=== PATIENT | male | born 1955 | race Hispanic/Latino ===

== ENCOUNTER 2020-05-06 19:38 | Observation (INO) | payer MEDICAID, OTHER ==
[2020-05-06] MEDS ORDERED: ASPIRIN 325 MG TAB PO ONE (19:50)
[2020-05-06 20:25] LABS: Hematocrit 50.1 % (35.5-45.6); Hemoglobin 16.4 gm/dl (11.8-15.2); Mean Corpuscular HGB Conc 33 % (32-34); Mean Corpuscular Volume 88 fl (84-94); Platelet Count 218 K/mm3 (140-440); Red Blood Count 5.68 M/mm3 (3.65-5.03); Red Cell Distribution Width 16.2 % (13.2-15.2)
[2020-05-06 20:43] LABS: BUN/Creatinine Ratio 26; Blood Urea Nitrogen 18 mg/dL (9-20); Calcium 9.6 mg/dL (8.4-10.2); Hemolysis Index 14
--- NOTE | 2020-05-06 20:59 | XRay Report ---
CHEST 1 VIEW 05/06/2020 7:50 PM INDICATION / CLINICAL INFORMATION: Chest Pain. COMPARISON: 12/06/2017. FINDINGS: SUPPORT DEVICES: Left-sided cardiac conduction device. HEART / MEDIASTINUM: No significant abnormality. LUNGS / PLEURA: No significant pulmonary or pleural abnormality. No pneumothorax. ADDITIONAL FINDINGS: No significant additional findings. IMPRESSION: No acute cardiopulmonary abnormality. No significant change from 12/06/2017. Signer Name: Buddy Hubbard MD Signed: 05/06/2020 8:55 PM Workstation Name: [id number]
[2020-05-06 22:44] LABS: Anisocytosis 1+; Basophils % (Manual) 0 % (0.0-1.8); Platelet Estimate Consistent w Auto; Total Cells Counted 100
[2020-05-06] MEDS ORDERED: MORPHINE 4 MG/1 ML INJ IV ONE (23:49)
--- NOTE | 2020-05-06 23:52 | Emergency Department Report ---
ED Chest Pain HPI - General Chief Complaint: Chest Pain Stated Complaint: CHEST PAIN Time Seen by Provider: 05/06/20 23:49 Source: patient, EMS Mode of arrival: Stretcher Limitations: No Limitations - History of Present Illness Initial Comments: 65-year-old male with a past medical history of CAD with 3 stents, AICD, hyperlipidemia, and diabetes presents to the hospital complaints of sudden onset of substernal chest pain radiating to left shoulder and back that started 1 hour prior to arrival at approximately 18: 30. Pain described as a intermittent pressure/tightness with associated shortness of breath, nausea, vomiting, and diaphoresis. Patient states his last heart attack was in 2000 and pain feels similar. He has been compliant with his statin, baby aspirin, metformin, and metoprolol. He states he is allergic to nitroglycerin and most of the antiemetics. Patient recently relocated here from [place] but was seen by Dr. Sheikh/[facility] heart in the past as per medical record review as hospitalization here was in November 2017. He prefers follow-up with the same cardiology group. Patient also has a secondary complaint of discomfort with urination but denies pain, polyuria, dysuria, lower back, flank pain, history of kidney stones. - Related Data Previous Rx's Medication Instructions Recorded Last Taken Type Simvastatin (Nf) [Zocor TAB] 40 mg PO DAILY 30 Days #30 tablet 09/05/17 Unknown Rx Acetaminophen [Acetaminophen TAB] 650 mg PO Q4H PRN #30 tablet 12/09/17 Unknown Rx Aspirin [Aspirin BABY CHEW TAB] 81 mg PO QDAY #30 tab.chew 12/09/17 Unknown Rx Metformin HCl [Glucophage] 500 mg PO BID #60 12/09/17 Unknown Rx Metoprolol [Lopressor TAB] 100 mg PO DAILY #30 tablet 12/09/17 Unknown Rx Allergies Allergy/AdvReac Type Severity Reaction Status Date / Time nitroglycerin Allergy Angioedema Verified 12/06/17 00:57 prochlorperazine edisylate Allergy Hives Verified 12/06/17 00:57 [From Compazine] prochlorperazine maleate Allergy Hives Verified 12/06/17 00:57 [From Compazine] metoclopramide HCl AdvReac Unknown Verified 12/06/17 00:57 [From Reglan] ondansetron HCl [From Zofran] AdvReac Unknown Verified 12/06/17 00:57 promethazine HCl AdvReac Unknown Verified 12/06/17 00:57 [From Phenergan] Heart Score - HEART Score History: Slightly suspicious EKG: Non-specific Age: > 65 Risk factors: > 3 risk factors or hx of atherosclerotic disease Troponin: < normal limit HEART Score: 5 ED Review of Systems ROS: Stated complaint: CHEST PAIN Other details as noted in HPI Comment: All other systems reviewed and negative ED Past Medical Hx - Past Medical History Previous Medical History?: Yes Hx Hypertension: Yes Hx Heart Attack/AMI: Yes Hx Congestive Heart Failure: No Hx Diabetes: Yes Hx Asthma: No Hx COPD: No Additional medical history: High cholesterol; VTach, - Surgical History Past Surgical History?: Yes Hx Coronary Stent: Yes Hx Pacemaker: Yes Hx Internal Defibrillator: Yes Hx Cholecystectomy: Yes - Social History Smoking Status: Never Smoker Substance Use Type: None - Medications Home Medications: Home Medications Medication Instructions Recorded Confirmed Last Taken Type Simvastatin (Nf) [Zocor TAB] 40 mg PO DAILY 30 Days #30 tablet 09/05/17 12/06/17 Unknown Rx Acetaminophen [Acetaminophen TAB] 650 mg PO Q4H PRN #30 tablet 12/09/17 Unknown Rx Aspirin [Aspirin BABY CHEW TAB] 81 mg PO QDAY #30 tab.chew 12/09/17 Unknown Rx Metformin HCl [Glucophage] 500 mg PO BID #60 12/09/17 12/06/17 Unknown Rx Metoprolol [Lopressor TAB] 100 mg PO DAILY #30 tablet 12/09/17 Unknown Rx ED Physical Exam - General Limitations: No Limitations ED Course Vital Signs 05/06/20 05/06/20 05/07/20 19:55 23:53 01:24 Temperature 98.6 F Pulse Rate 94 H 78 84 Respiratory 20 19 20 Rate Blood Pressure 165/124 Blood Pressure 184/117 153/103 [Right] O2 Sat by Pulse 92 95 97 Oximetry JOHN score - John Score Age > 65: (0) No Aspirin use within the Past 7 Days: (1) Yes 3 or more CAD Risk Factors: (1) Yes 2 or more Angina events in past 24 hrs: (0) No Known CAD with more than 50% Stenosis: (1) Yes Elevated Cardiac Markers: (0) No ST Deviation Greater than 0.5mm: (0) No JOHN Score: 3 ED Medical Decision Making - Lab Data Result diagrams: 05/06/20 19:56 05/06/20 19:56 Lab Results 05/06/20 05/06/20 05/06/20 Range/Units 19:56 19:56 22:53 WBC 10.5 (4.5-11.0) K/mm3 RBC 5.68 H (3.65-5.03) M/mm3 Hgb 16.4 H (11.8-15.2) gm/dl Hct 50.1 H (35.5-45.6) % MCV 88 (84-94) fl MCH 29 (28-32) pg MCHC 33 (32-34) % RDW 16.2 H (13.2-15.2) % Plt Count 218 (140-440) K/mm3 Add Manual Diff Complete Total Counted 100 Seg Neuts % (Manual) 69.0 (40.0-70.0) % Band Neutrophils % 0 % Lymphocytes % (Manual) 18.0 (13.4-35.0) % Reactive Lymphs % (Man) 0 % Monocytes % (Manual) 12.0 H (0.0-7.3) % Eosinophils % (Manual) 1.0 (0.0-4.3) % Basophils % (Manual) 0 (0.0-1.8) % Metamyelocytes % 0 % Myelocytes % 0 % Promyelocytes % 0 % Blast Cells % 0 % Nucleated RBC % Not Reportable Seg Neutrophils # Man 7.2 (1.8-7.7) K/mm3 Band Neutrophils # 0.0 K/mm3 Lymphocytes # (Manual) 1.9 (1.2-5.4) K/mm3 Abs React Lymphs (Man) 0.0 K/mm3 Monocytes # (Manual) 1.3 H (0.0-0.8) K/mm3 Eosinophils # (Manual) 0.1 (0.0-0.4) K/mm3 Basophils # (Manual) 0.0 (0.0-0.1) K/mm3 Metamyelocytes # 0.0 K/mm3 Myelocytes # 0.0 K/mm3 Promyelocytes # 0.0 K/mm3 Blast Cells # 0.0 K/mm3 WBC Morphology Not Reportable Hypersegmented Neuts Not Reportable Hyposegmented Neuts Not Reportable Hypogranular Neuts Not Reportable Smudge Cells Not Reportable Toxic Granulation Not Reportable Toxic Vacuolation Not Reportable Dohle Bodies Not Reportable Pelger-Huet Anomaly Not Reportable Matteo Rods Not Reportable Platelet Estimate Consistent w auto Clumped Platelets Not Reportable Plt Clumps, EDTA Not Reportable Large Platelets Not Reportable Giant Platelets Not Reportable Platelet Satelliting Not Reportable Plt Morphology Comment Not Reportable RBC Morphology Not Reportable Dimorphic RBCs Not Reportable Polychromasia Not Reportable Hypochromasia Not Reportable Poikilocytosis Not Reportable Anisocytosis 1+ Microcytosis Not Reportable Macrocytosis Not Reportable Spherocytes Not Reportable Pappenheimer Bodies Not Reportable Sickle Cells Not Reportable Target Cells Not Reportable Tear Drop Cells Not Reportable Ovalocytes Not Reportable Helmet Cells Not Reportable Mckenzie-Papillion Bodies Not Reportable Brownell Rings Not Reportable Ching Cells Not Reportable Bite Cells Not Reportable Crenated Cell Not Reportable Elliptocytes Not Reportable Acanthocytes (Spur) Not Reportable Rouleaux Not Reportable Hemoglobin C Crystals Not Reportable Schistocytes Not Reportable Malaria parasites Not Reportable Antonio Bodies Not Reportable Hem Pathologist Commnt No Sodium 140 (137-145) mmol/L Potassium 4.0 (3.6-5.0) mmol/L Chloride 100.5 (98-107) mmol/L Carbon Dioxide 23 (22-30) mmol/L Anion Gap 21 mmol/L BUN 18 (9-20) mg/dL Creatinine 0.7 L (0.8-1.3) mg/dL Estimated GFR > 60 ml/min BUN/Creatinine Ratio 26 % Glucose 112 H (75-100) mg/dL Calcium 9.6 (8.4-10.2) mg/dL Troponin T < 0.010 < 0.010 (0.00-0.029) ng/mL - EKG Data -: EKG Interpreted by [facility] EKG shows normal: sinus rhythm, ST-T waves (No STEMI) Rate: normal - EKG Data When compared to previous EKG there are: no significant change - Radiology Data Radiology results: report reviewed CHEST 1 VIEW 05/06/2020 7:50 PM INDICATION / CLINICAL INFORMATION: Chest Pain. COMPARISON: 12/06/2017. FINDINGS: SUPPORT DEVICES: Left-sided cardiac conduction device. HEART / MEDIASTINUM: No significant abnormality. LUNGS / PLEURA: No significant pulmonary or pleural abnormality. No pneumothorax. ADDITIONAL FINDINGS: No significant additional findings. IMPRESSION: No acute cardiopulmonary abnormality. No significant change from 12/06/2017. - Medical Decision Making 65-year-old male with a history of CAD presents with chest pain similar to prev ious OR episodes requiring stent placement. Initial EKG unchanged from previous from 2018 and troponin negative x2. Patient presents with elevated blood pressure. Labetalol ordered. Patient also treated with morphine for pain. Patient will be admitted to the hospitalist service for treatment and cardiology consult ordered with [facility] ordered given urinary complaints and pending at disposition Critical care attestation.: If time is entered above; I have spent that time in minutes in the direct care of this critically ill patient, excluding procedure time. ED Disposition Clinical Impression: Chest pain, AICD (automatic cardioverter/defibrillator) present, Dyslipidemia, HTN (hypertension), History of heart artery stent, Diabetes Disposition: OP ADMIT IP TO THIS HOSP Is pt being admited?: Yes Time of Disposition: 23:54 (Dr Evangelista/hosp)
[2020-05-07] MEDS ORDERED: DEXTROSE 50% IN WATER (25GM) 50 ML SYRINGE IV PRN (00:49)
[2020-05-07] MEDS ORDERED: MAGNESIUM HYDROXIDE (MOM) ORAL LIQD UDC PO PRN (00:49)
[2020-05-07] MEDS ORDERED: ACETAMINOPHEN 325 MG TAB PO PRN ×2 (00:49)
--- NOTE | 2020-05-07 01:07 | History and Physical Report ---
History of Present Illness Date of examination: 05/07/20 Date of admission: 05/07/2020 Chief complaint: Chest Pain History of present illness: 65-year-old male with known history of coronary artery disease with 3 stents placement in the past, hypertension, diabetes mellitus ,hyperlipidemia and history of AICD presenting to the emergency room today complaining of substernal chest pain. Pain is said to be of sudden onset and radiating towards the left shoulder and back. Pain felt like a pressure and was intermittent. She had associated shortness of breath, nausea and vomiting, and diaphoresis. Patient has just relocated from [place] but has followed up with Dr. Sheikh in the past. Last follow-up was about 2 years ago. Patient remains compliant with his medications. Work-up in the emergency room today including chest x-ray, EKG and troponins were unremarkable. Patient is being admitted to be evaluated for chest pain. Past History Past Medical History: CAD, diabetes, hypertension, hyperlipidemia Past Surgical History: PTCA, Other (AICD Placement) Social history: no significant social history Family history: no significant family history Medications and Allergies Allergies Allergy/AdvReac Type Severity Reaction Status Date / Time nitroglycerin Allergy Angioedema Verified 12/06/17 00:57 prochlorperazine edisylate Allergy Hives Verified 12/06/17 00:57 [From Compazine] prochlorperazine maleate Allergy Hives Verified 12/06/17 00:57 [From Compazine] metoclopramide HCl AdvReac Unknown Verified 12/06/17 00:57 [From Reglan] ondansetron HCl [From Zofran] AdvReac Unknown Verified 12/06/17 00:57 promethazine HCl AdvReac Unknown Verified 12/06/17 00:57 [From Phenergan] Home Medications Medication Instructions Recorded Confirmed Last Taken Type Aspirin [Aspirin BABY CHEW TAB] 81 mg PO QDAY #30 tab.chew 12/09/17 05/07/20 Unknown Rx Metformin HCl [Glucophage] 500 mg PO BID #60 12/09/17 05/07/20 Unknown Rx Atorvastatin [Lipitor Tab] 40 mg PO QHS 05/07/20 05/07/20 Unknown History Metoprolol [Lopressor TAB] 50 mg PO DAILY 05/07/20 05/07/20 Unknown History Review of Systems Constitutional: other (Diaphoresis), no fever, no chills Ears, nose, mouth and throat: no nasal congestion, no sore throat Cardiovascular: chest pain, no palpitations Respiratory: shortness of breath, no cough Gastrointestinal: no abdominal pain, no nausea, no vomiting Genitourinary Male: no dysuria, no hematuria, no flank pain Musculoskeletal: no neck pain, no low back pain Integumentary: no rash, no pruritis Neurological: no headaches, no confusion Psychiatric: no anxiety, no depression Exam - Constitutional Vitals: Temp Pulse Resp BP Pulse Ox 98.6 F 78 19 184/117 95 05/06/20 19:55 05/06/20 23:53 05/06/20 23:53 05/06/20 23:53 05/06/20 23:53 General appearance: Present: no acute distress, well-nourished - EENT Eyes: Present: PERRL, EOM intact. Absent: scleral icterus ENT: hearing intact, clear oral mucosa, dentition normal - Neck Neck: Present: supple, normal ROM - Respiratory Respiratory effort: normal Respiratory: bilateral: CTA - Cardiovascular Rhythm: regular Heart Sounds: Present: S1 & S2. Absent: gallop, systolic murmur, diastolic murmur, rub - Extremities Extremities: no ischemia, pulses intact, pulses symmetrical, No edema, Full ROM Peripheral Pulses: within normal limits - Abdominal General gastrointestinal: Present: soft, non-tender, non-distended, normal bowel sounds. Absent: mass - Integumentary Integumentary: Present: clear, warm, dry. Absent: rash - Musculoskeletal Musculoskeletal: strength equal bilaterally - Psychiatric Psychiatric: appropriate mood/affect, intact judgment & insight, memory intact, cooperative - Neurologic Neurologic: CNII-XII intact, no focal deficits, moves all extremities HEART Score - HEART Score History: Moderately suspicious EKG: Non-specific Age: > 65 Risk factors: > 3 risk factors or hx of atherosclerotic disease Troponin: Troponin T < 0.010 ng/mL (0.00-0.029) 05/06/20 22:53 Troponin: < normal limit HEART Score: 6 Results - Labs CBC & Chem 7: 05/07/20 01:36 05/07/20 01:36 Labs: Abnormal lab results 05/06/20 05/06/20 Range/Units 19:56 19:56 RBC 5.68 H (3.65-5.03) M/mm3 Hgb 16.4 H (11.8-15.2) gm/dl Hct 50.1 H (35.5-45.6) % RDW 16.2 H (13.2-15.2) % Monocytes % (Manual) 12.0 H (0.0-7.3) % Monocytes # (Manual) 1.3 H (0.0-0.8) K/mm3 Creatinine 0.7 L (0.8-1.3) mg/dL Glucose 112 H (75-100) mg/dL Assessment and Plan - Patient Problems (1) Chest pain Current Visit: Yes Status: Acute Plan to address problem: We will check serial cardiac enzymes. Placed on daily aspirin. Patient is allergic to nitroglycerin. We will place a consult to cardiology for evaluation. (2) AICD (automatic cardioverter/defibrillator) present Current Visit: Yes Status: Acute Plan to address problem: Stable. (3) Diabetes Current Visit: Yes Status: Acute Plan to address problem: We will monitor Accu-Cheks. (4) HTN (hypertension) Current Visit: Yes Status: Acute Plan to address problem: Resume routine home medications and monitor vital signs closely. (5) Dyslipidemia Current Visit: Yes Status: Chronic Plan to address problem: We will monitor lipid profile. (6) DVT prophylaxis Current Visit: No Status: Acute Plan to address problem: Patient placed on subcutaneous heparin. (7) Full code status Current Visit: Yes Status: Acute
[2020-05-07 02:24] LABS: Hematocrit 46.2 % (35.5-45.6); Hemoglobin 15.4 gm/dl (11.8-15.2); Mean Corpuscular HGB Conc 33 % (32-34); Mean Corpuscular Volume 88 fl (84-94); Platelet Count 207 K/mm3 (140-440); Red Blood Count 5.24 M/mm3 (3.65-5.03); Red Cell Distribution Width 16.3 % (13.2-15.2)
[2020-05-07 02:32] LABS: BUN/Creatinine Ratio 23; Blood Urea Nitrogen 18 mg/dL (9-20); Hemolysis Index 8
[2020-05-07] MEDS: MORPHINE 2 MG/1 ML INJ IV PRN ×4 (04:32→20:52)
[2020-05-07 04:39] LABS: Platelet Estimate Consistent w Auto; Total Cells Counted 100
[2020-05-07] MEDS: INSULIN LISPRO 100 UNIT/ML VIAL 3 mL SUB-Q SCH ×4 (08:07→22:00)
[2020-05-07 08:12] LABS: Bilirubin,Urine NEG (Negative); Blood,Urine NEG (Negative); Color,Urine Yellow (Yellow); Mucus,Urine 2+ /HPF; Protein,Urine <15 mg/dL mg/dL (Negative); Urobilinogen,Urine < 2.0 mg/dL (<2.0)
--- NOTE | 2020-05-07 14:09 | Consultation ---
HISTORY OF PRESENT ILLNESS: The patient is a 65-year-old gentleman known to have coronary artery disease, ventricular tachycardia, hyperlipidemia, hypertension and diabetes. He is known to Dr. Sheikh, and he has been feeling well until yesterday when he developed precordial chest heaviness that was prolonged and occurred at rest. There was associated shortness of breath, nausea and vomiting as well as diaphoresis. He had a heart attack in 2000 and had a defibrillator placed years ago for ventricular tachycardia. He stays fairly active. He is compliant with medications. His blood pressure is usually okay. He is allergic to NITROGLYCERIN. He did not describe any congestive heart failure or strokes. He has also had a recent onset of difficulty with urination and possible passage of a kidney stone. There has been no peripheral vascular disease or strokes. PAST MEDICAL HISTORY: See the nurse's list. MEDICATIONS: See the nurse's list. ALLERGIES: MULTIPLE INCLUDING NITROGLYCERIN, COMPAZINE, REGLAN, ZOFRAN, PHENERGAN. SOCIAL HISTORY: Smoking: None. Alcohol: No heavy use. FAMILY HISTORY: Noncontributory. PREVIOUS SURGERIES: Include cholecystectomy, defibrillator placement, coronary stent placement. REVIEW OF SYSTEMS: No other complaints or medical problems. PHYSICAL EXAMINATION: GENERAL: Well-developed, moderately obese, no acute distress. Alert, oriented, cooperative. Mental status normal. EYES, NOSE, AND THROAT: Unremarkable. NECK: Reveals no JVD or bruits. Neck is supple, no masses. LUNGS: Clear. No labored respirations. HEART: Regular rhythm, S4 gallop. Grade 1 systolic murmur. ABDOMEN: Soft, nontender, no masses. EXTREMITIES: No cyanosis, clubbing, edema. Peripheral pulses are intact. NEUROLOGIC: Symmetrical. SKIN: Clear. LABORATORY DATA: EKG pending. Troponins negative. IMPRESSION: 1. Prolonged chest pain at rest. Possible unstable angina, no signs of an acute coronary syndrome: He was not well enough to undergo stress testing this morning given recurrent nausea and vomiting this morning. We will have to postpone stress testing. I would like to review the electrocardiograms for ischemic electrocardiographic changes. 2. Uncontrolled hypertension, secondary to apprehension. 3. History of ventricular tachycardia and ICD placement: Stable. 4. Diabetes. 5. Hyperlipidemia. 6. Obesity. 7. Difficulty with urination, possible benign prostatic hypertrophy symptoms. 8. Recurrent nausea and vomiting this morning: Consider underlying GI disorder. PLAN: Reschedule stress test for Saturday. Can consider discharging on aggressive medical therapy with outpatient testing and also consider GI workup at some point. Thank you for this consultation. JOB# [id number] SUSI/ELIECER
[2020-05-07] MEDS: PANTOPRAZOLE 40 MG INJ IV SCH ×2 (15:20→21:50)
[2020-05-07] MEDS: SUCRALFATE 1 GM TAB PO SCH ×3 (15:20→23:59)
[2020-05-07] MEDS: HEPARIN 5,000 UNIT/1 ML VIAL SUB-Q SCH ×2 (15:20→21:49)
[2020-05-08] MEDS: MORPHINE 2 MG/1 ML INJ IV PRN ×4 (03:54→21:55)
[2020-05-08 04:33] LABS: Hematocrit 45.8 % (35.5-45.6); Hemoglobin 15.4 gm/dl (11.8-15.2); Mean Corpuscular HGB Conc 34 % (32-34); Mean Corpuscular Volume 87 fl (84-94); Platelet Count 205 K/mm3 (140-440); Red Blood Count 5.25 M/mm3 (3.65-5.03); Red Cell Distribution Width 16.5 % (13.2-15.2)
[2020-05-08 04:45] LABS: BUN/Creatinine Ratio 26; Blood Urea Nitrogen 21 mg/dL (9-20); Calcium 8.9 mg/dL (8.4-10.2); Hemolysis Index 15
[2020-05-08 04:49] LABS: INR 0.97 (0.87-1.13)
[2020-05-08] MEDS: SUCRALFATE 1 GM TAB PO SCH ×3 (05:32→17:42)
[2020-05-08] MEDS: METOPROLOL TARTRATE 50 MG TAB PO SCH ×2 (05:32→21:55)
[2020-05-08] MEDS: HEPARIN 5,000 UNIT/1 ML VIAL SUB-Q SCH ×3 (05:32→22:04)
[2020-05-08 06:05] LABS: Anisocytosis 1+; Band Neutrophils # (Manual) 0.1 K/mm3; Basophils % (Manual) 0 % (0.0-1.8); Platelet Estimate Consistent w Auto; Total Cells Counted 100
[2020-05-08] MEDS: INSULIN LISPRO 100 UNIT/ML VIAL 3 mL SUB-Q SCH ×4 (08:03→22:00)
[2020-05-08] MEDS: ASPIRIN EC 325 MG TAB PO SCH (10:09)
[2020-05-08] MEDS: PANTOPRAZOLE 40 MG INJ IV SCH ×2 (10:10→21:55)
--- NOTE | 2020-05-08 12:07 | Progress Note ---
Assessment and Plan - Patient Problems (1) AICD (automatic cardioverter/defibrillator) present Current Visit: Yes Status: Acute (2) Chest pain Current Visit: Yes Status: Acute (3) HTN (hypertension) Current Visit: Yes Status: Acute (4) History of heart artery stent Current Visit: Yes Status: Acute (5) Dyslipidemia Current Visit: Yes Status: Chronic Subjective Date of service: 05/08/20 Interval history: MILD CP THIS AM Objective Vital Signs Temp Pulse Resp BP Pulse Ox 05/08/20 09:37 83 05/08/20 04:35 98.0 F 83 18 172/97 94 05/07/20 23:58 98.4 F 84 18 165/102 93 05/07/20 22:00 81 18 05/07/20 21:48 164/103 05/07/20 19:09 98.6 F 91 H 18 169/116 95 05/07/20 17:23 98.2 F 108 H 18 129/75 95 - Physical Examination General: Appears Well, Other (OBESE) HEENT: Positive: PERRL Neck: Positive: neck supple Cardiac: Positive: Reg Rate and Rhythm Lungs: Positive: clear to auscultation - Labs and Meds Coagulation 05/08/20 Range/Units 03:47 PT 13.0 (12.2-14.9) Sec. INR 0.97 (0.87-1.13) CBC 05/08/20 Range/Units 03:47 WBC 8.4 (4.5-11.0) K/mm3 RBC 5.25 H (3.65-5.03) M/mm3 Hgb 15.4 H (11.8-15.2) gm/dl Hct 45.8 H (35.5-45.6) % Plt Count 205 (140-440) K/mm3 Comprehensive Metabolic Panel 05/08/20 Range/Units 03:47 Sodium 139 (137-145) mmol/L Potassium 4.2 (3.6-5.0) mmol/L Chloride 100.9 (98-107) mmol/L Carbon Dioxide 26 (22-30) mmol/L BUN 21 H (9-20) mg/dL Creatinine 0.8 (0.8-1.3) mg/dL Glucose 99 (75-100) mg/dL Calcium 8.9 (8.4-10.2) mg/dL
--- NOTE | 2020-05-08 13:12 | Progress Note ---
Assessment and Plan Assessment and plan: 65-year-old male with known history of coronary artery disease with 3 stents placement in the past, hypertension, diabetes mellitus ,hyperlipidemia and history of AICD presenting to the emergency room with complaints of substernal chest pain. Pain is said to be of sudden onset and radiating towards the left shoulder and back. Pain felt like a pressure and was intermittent. He also had associated shortness of breath, nausea and vomiting, and diaphoresis. Patient has just relocated from [place] but has followed up with Dr. Sheikh in the past. Last follow-up was about 2 years ago. Patient remains compliant with his medications. In the ED, chest x-ray, EKG and troponins were unremarkable. He was admitted for a stress test. History Interval history: Complained of chest discomfort with nausea this morning. He is scheduled to have a stress test tomorrow Hospitalist Physical - Constitutional Vitals: Temp Pulse Resp BP Pulse Ox 98.0 F 83 18 172/97 94 05/08/20 04:35 05/08/20 09:37 05/08/20 04:35 05/08/20 04:35 05/08/20 04:35 General appearance: Present: no acute distress, well-nourished - EENT Eyes: Present: PERRL - Neck Neck: Present: supple - Respiratory Respiratory: bilateral: CTA - Cardiovascular Heart Sounds: Present: S1 & S2 - Extremities Extremities: no ischemia, No edema - Abdominal General gastrointestinal: soft, non-tender, non-distended, normal bowel sounds - Psychiatric Psychiatric: appropriate mood/affect - Neurologic Neurologic: CNII-XII intact - Allied Health Allied health notes reviewed: nursing HEART Score - HEART Score EKG: Non-specific Age: > 65 Risk factors: > 3 risk factors or hx of atherosclerotic disease Troponin: Troponin T < 0.010 ng/mL (0.00-0.029) 05/07/20 06:41 Troponin: < normal limit Results - Labs CBC & Chem 7: 05/08/20 03:47 05/08/20 03:47 Labs: Laboratory Last Values WBC 8.4 K/mm3 (4.5-11.0) 05/08/20 03:47 RBC 5.25 M/mm3 (3.65-5.03) H 05/08/20 03:47 Hgb 15.4 gm/dl (11.8-15.2) H 05/08/20 03:47 Hct 45.8 % (35.5-45.6) H 05/08/20 03:47 MCV 87 fl (84-94) 05/08/20 03:47 MCH 29 pg (28-32) 05/08/20 03:47 MCHC 34 % (32-34) 05/08/20 03:47 RDW 16.5 % (13.2-15.2) H 05/08/20 03:47 Plt Count 205 K/mm3 (140-440) 05/08/20 03:47 Add Manual Diff Complete 05/08/20 03:47 Total Counted 100 05/08/20 03:47 Seg Neuts % (Manual) 73.0 % (40.0-70.0) H 05/08/20 03:47 Band Neutrophils % 1.0 % 05/08/20 03:47 Lymphocytes % (Manual) 18.0 % (13.4-35.0) 05/08/20 03:47 Reactive Lymphs % (Man) 0 % 05/08/20 03:47 Monocytes % (Manual) 6.0 % (0.0-7.3) 05/08/20 03:47 Eosinophils % (Manual) 2.0 % (0.0-4.3) 05/08/20 03:47 Basophils % (Manual) 0 % (0.0-1.8) 05/08/20 03:47 Metamyelocytes % 0 % 05/08/20 03:47 Myelocytes % 0 % 05/08/20 03:47 Promyelocytes % 0 % 05/08/20 03:47 Blast Cells % 0 % 05/08/20 03:47 Nucleated RBC % Not Reportable 05/08/20 03:47 Seg Neutrophils # Man 6.1 K/mm3 (1.8-7.7) 05/08/20 03:47 Band Neutrophils # 0.1 K/mm3 05/08/20 03:47 Lymphocytes # (Manual) 1.5 K/mm3 (1.2-5.4) 05/08/20 03:47 Abs React Lymphs (Man) 0.0 K/mm3 05/08/20 03:47 Monocytes # (Manual) 0.5 K/mm3 (0.0-0.8) 05/08/20 03:47 Eosinophils # (Manual) 0.2 K/mm3 (0.0-0.4) 05/08/20 03:47 Basophils # (Manual) 0.0 K/mm3 (0.0-0.1) 05/08/20 03:47 Metamyelocytes # 0.0 K/mm3 05/08/20 03:47 Myelocytes # 0.0 K/mm3 05/08/20 03:47 Promyelocytes # 0.0 K/mm3 05/08/20 03:47 Blast Cells # 0.0 K/mm3 05/08/20 03:47 WBC Morphology Not Reportable 05/08/20 03:47 Hypersegmented Neuts Not Reportable 05/08/20 03:47 Hyposegmented Neuts Not Reportable 05/08/20 03:47 Hypogranular Neuts Not Reportable 05/08/20 03:47 Smudge Cells Not Reportable 05/08/20 03:47 Toxic Granulation Not Reportable 05/08/20 03:47 Toxic Vacuolation Not Reportable 05/08/20 03:47 Dohle Bodies Not Reportable 05/08/20 03:47 Pelger-Huet Anomaly Not Reportable 05/08/20 03:47 Matteo Rods Not Reportable 05/08/20 03:47 Platelet Estimate Consistent w auto 05/08/20 03:47 Clumped Platelets Not Reportable 05/08/20 03:47 Plt Clumps, EDTA Not Reportable 05/08/20 03:47 Large Platelets Not Reportable 05/08/20 03:47 Giant Platelets Not Reportable 05/08/20 03:47 Platelet Satelliting Not Reportable 05/08/20 03:47 Plt Morphology Comment Not Reportable 05/08/20 03:47 RBC Morphology Not Reportable 05/08/20 03:47 Dimorphic RBCs Not Reportable 05/08/20 03:47 Polychromasia Not Reportable 05/08/20 03:47 Hypochromasia Not Reportable 05/08/20 03:47 Poikilocytosis Not Reportable 05/08/20 03:47 Anisocytosis 1+ 05/08/20 03:47 Microcytosis Not Reportable 05/08/20 03:47 Macrocytosis Not Reportable 05/08/20 03:47 Spherocytes Not Reportable 05/08/20 03:47 Pappenheimer Bodies Not Reportable 05/08/20 03:47 Sickle Cells Not Reportable 05/08/20 03:47 Target Cells Not Reportable 05/08/20 03:47 Tear Drop Cells Not Reportable 05/08/20 03:47 Ovalocytes Not Reportable 05/08/20 03:47 Helmet Cells Not Reportable 05/08/20 03:47 Mckenzie-Benndale Bodies Not Reportable 05/08/20 03:47 Sayre Rings Not Reportable 05/08/20 03:47 [place] Cells Not Reportable 05/08/20 03:47 Bite Cells Not Reportable 05/08/20 03:47 Crenated Cell Not Reportable 05/08/20 03:47 Elliptocytes Not Reportable 05/08/20 03:47 Acanthocytes (Spur) Not Reportable 05/08/20 03:47 Rouleaux Not Reportable 05/08/20 03:47 Hemoglobin C Crystals Not Reportable 05/08/20 03:47 Schistocytes Not Reportable 05/08/20 03:47 Malaria parasites Not Reportable 05/08/20 03:47 Antonio Bodies Not Reportable 05/08/20 03:47 Hem Pathologist Commnt No 05/08/20 03:47 PT 13.0 Sec. (12.2-14.9) 05/08/20 03:47 INR 0.97 (0.87-1.13) 05/08/20 03:47 Sodium 139 mmol/L (137-145) 05/08/20 03:47 Potassium 4.2 mmol/L (3.6-5.0) 05/08/20 03:47 Chloride 100.9 mmol/L (98-107) 05/08/20 03:47 Carbon Dioxide 26 mmol/L (22-30) 05/08/20 03:47 Anion Gap 16 mmol/L 05/08/20 03:47 BUN 21 mg/dL (9-20) H 05/08/20 03:47 Creatinine 0.8 mg/dL (0.8-1.3) 05/08/20 03:47 Estimated GFR > 60 ml/min 05/08/20 03:47 BUN/Creatinine Ratio 26 % 05/08/20 03:47 Glucose 99 mg/dL (75-100) 05/08/20 03:47 POC Glucose 105 (70-105) 05/08/20 12:20 Calcium 8.9 mg/dL (8.4-10.2) 05/08/20 03:47 Troponin T < 0.010 ng/mL (0.00-0.029) 05/07/20 06:41 Urine Color Yellow (Yellow) 05/07/20 07:54 Urine Turbidity Slightly-cloudy (Clear) 05/07/20 07:54 Urine pH 5.0 (5.0-7.0) 05/07/20 07:54 Ur Specific [place] 1.018 (1.003-1.030) 05/07/20 07:54 Urine Protein <15 mg/dl mg/dL (Negative) 05/07/20 07:54 Urine Glucose (UA) Neg mg/dL (Negative) 05/07/20 07:54 Urine Ketones Neg mg/dL (Negative) 05/07/20 07:54 Urine Blood Neg (Negative) 05/07/20 07:54 Urine Nitrite Neg (Negative) 05/07/20 07:54 Urine Bilirubin Neg (Negative) 05/07/20 07:54 Urine Urobilinogen < 2.0 mg/dL (<2.0) 05/07/20 07:54 Ur Leukocyte Esterase Mod (Negative) 05/07/20 07:54 Urine WBC (Auto) 183.0 /HPF (0.0-6.0) H 05/07/20 07:54 Urine RBC (Auto) 15.0 /HPF (0.0-6.0) 05/07/20 07:54 U Epithel Cells (Auto) < 1.0 /HPF (0-13.0) 05/07/20 07:54 Urine Mucus 2+ /HPF 05/07/20 07:54 - Diagnostic Impressions Diagnostic Impressions: Echocardiogram 05/07/20 00:59 Transthoracic Echocardiogram Indication: Chest Pain BP: 159/95 HR: 95 Conclusions *MOD.-SEVERE LVH *EF 65-70% *PROBABLE GRADE II DIASTOLIC DYSFUNCTION *JOHN *LEAD NOTED IN THE RA RV Findings Left Ventricle: The left ventricular chamber size is normal. Moderate to severe concentric left ventricular hypertrophy is observed. Global left ventricular wall motion and contractility are within normal limits. Global left ventricular systolic function is normal. The estimated ejection fraction is 65-70%. Abnormal left ventricular diastolic function is observed. Abnormal left ventricular diastolic filling is observed, consistent with impaired relaxation. Left Atrium: The left atrium is mildly dilated. Right Ventricle: The right ventricle wall thickness is mildly increased. The right ventricle is mild to moderately dilated. The right ventricular global systolic function is normal. A pacemaker wire is visualized in the right ventricle. Right Atrium: The right atrium is mild to moderately dilated. The interatrial septum appears normal. Aortic Valve: The aortic valve structure is normal. Mild aortic cusp sclerosis is present. There is mild aortic regurgitation. There is no evidence of aortic stenosis. Mitral Valve: The mitral valve leaflets appear normal. There is mitral annular calcification. There is no evidence of mitral regurgitation. There is no evidence of mitral stenosis. Tricuspid Valve: The tricuspid valve leaflets are normal. There is mild tricuspid regurgitation. The right ventricular systolic pressure is calculated at 31 mmHg. There is no tricuspid stenosis. Pulmonic Valve: The pulmonic valve appears normal. There is no evidence of pulmonic regurgitation. There is no pulmonic stenosis. Pericardium: There is no pericardial effusion. Aorta: There is mild dilatation of the ascending aorta. There is no dilatation of the aortic arch. There is no dilatation of the descending thoracic aorta. There is mild dilatation of the aortic root. Venous: The inferior vena cava is not visualized. Measurements Chambers 2D Name Value Normal Range IVSd (2D) 1.4 cm (0.6 - 1.1) LVPWd (2D) 1.4 cm (0.6 - 1.1) LVIDd (2D) 4.59 cm (3.7 - 5.6) LVIDs (2D) 3.15 cm (2 - 3.8) LV FS (2D) 31.43 % - EF Teichholz (2D) 59.37 % - Ao root diameter (2D) 3.61 cm (2 - 3.7) Volumes/Mass Name Value Normal Range LA ESV SP 4CH (A/L) 70.57 ml - LA ESV SP 2CH (A/L) 80.5 ml - LA ESV BP (A/L) 77.46 ml - LA ESV SP 4CH (MOD) 68.84 ml - LA ESV SP 2CH (MOD) 79.68 ml - LA ESV BP (MOD) 76.02 ml - LA ESV BP (MOD) index 36.72 ml/m2 - LV EDV SP 4CH (MOD) 129.56 ml - LV ESV SP 4CH (MOD) 50.02 ml - EF SP 4CH (MOD) 61.39 % - Diastolic/Systolic Function Name Value Normal Range MV E-wave Vmax 0.67 m/sec - MV deceleration time 143.47 msec - MV A-wave Vmax 1.05 m/sec - MV E:A ratio 0.64 ratio - Aortic Valve Name Value Normal Range AV Vmax 1.31 m/sec - AV VTI 24.11 cm - AV peak gradient 6.87 mmHg - AV mean gradient 4.6 mmHg - LVOT diameter 2.22 cm - LVOT Vmax 0.91 m/sec - LVOT VTI 18.31 cm - LVOT peak gradient 3.34 mmHg - LVOT mean gradient 2.48 mmHg - SV LVOT 70.54 ml - LISA (continuity Vmax) 2.69 cm2 - LISA (continuity VTI) 2.93 cm2 - AR PHT 498.07 msec - AR peak gradient 59.73 mmHg - Ascending Ao 3.92 cm - Tricuspid Valve Name Value Normal Range TR Vmax 2.65 m/sec - TR peak gradient 28 mmHg - RAP 3 mmHg - RVSP 31 mmHg - Pulmonic Valve/Qp:Qs Name Value Normal Range PV Vmax 0.84 m/sec - PV peak gradient 2.81 mmHg - PV acceleration time 110.37 msec - Edwards/IV: Voiding Method Urinal IV Catheter Type [Left Hand] INT / Saline Lock Active Medications - Current Medications Current Medications: Generic Name Dose Route Start Last Admin Trade Name Jose PRN Reason Stop Dose Admin Acetaminophen 650 mg 05/07/20 00:49 Tylenol PO Q4H PRN Pain MILD(1-3)/Fever >100.5/CRUZ Aspirin 325 mg 05/08/20 10:00 05/08/20 10:09 Ecotrin PO 325 mg QDAY AZEB Administration Dextrose 50 ml 05/07/20 00:49 D50w (25gm) Syringe IV Q30MIN PRN Hypoglycemia Protocol Heparin Sodium (Porcine) 5,000 unit 05/07/20 14:00 05/08/20 05:32 Heparin SUB-Q 5,000 unit Q8HR AZEB Administration Insulin Human Lispro 0 unit 05/07/20 07:30 05/08/20 08:03 Humalog SUB-Q Not Given ACHS AZEB Protocol Magnesium Hydroxide 30 ml 05/07/20 00:49 Milk Of Magnesia PO Q4H PRN Constipation Metoprolol Tartrate 50 mg 05/08/20 06:00 05/08/20 05:32 Metoprolol PO 50 mg BID AZEB Administration Morphine Sulfate 2 mg 05/07/20 00:49 05/08/20 10:09 Morphine IV 2 mg Q5MIN PRN Administration Chest Pain unrelieved by NTG Pantoprazole Sodium 40 mg 05/07/20 14:00 05/08/20 10:10 Protonix IV 40 mg BID AZEB Administration Sodium Chloride 10 ml 05/07/20 10:00 05/08/20 10:10 Sodium Chloride Flush Syringe 10 Ml IV 10 ml BID AZEB Administration Sodium Chloride 10 ml 05/07/20 00:49 Sodium Chloride Flush Syringe 10 Ml IV PRN PRN LINE FLUSH Sucralfate 1 gm 05/07/20 14:00 05/08/20 05:32 Carafate PO 1 gm Q6HR AZEB Administration
[2020-05-09] MEDS: MORPHINE 2 MG/1 ML INJ IV PRN (04:23)
[2020-05-09] MEDS ORDERED: REGADENOSON 0.4 MG/5 ML INJ IV ONE ×2 (07:42→07:45)
[2020-05-09] MEDS: SUCRALFATE 1 GM TAB PO SCH ×3 (07:48→13:22)
[2020-05-09] MEDS: INSULIN LISPRO 100 UNIT/ML VIAL 3 mL SUB-Q SCH ×2 (07:49→13:23)
--- NOTE | 2020-05-09 09:11 | Progress Note ---
Assessment and Plan Chest pain Hx of coronary artery disease Hx of VT s/p cardiac defibrillator in situ Further evaluation of chest pain with a stress thallium test today. Results are pending. Subjective Date of service: 05/09/20 Interval history: No cardiac events reported overnight. For stress test today. Objective Vital Signs Temp Pulse Resp BP Pulse Ox 05/09/20 08:30 98.2 F 64 18 179/102 97 05/09/20 06:46 65 18 142/81 92 05/09/20 04:23 20 05/09/20 04:18 97.9 F 60 18 168/100 94 05/08/20 23:45 98.0 F 80 18 157/97 92 05/08/20 21:55 228 H 20 107/70 05/08/20 20:16 97.4 F L 77 20 158/96 93 05/08/20 15:44 97.8 F 67 20 148/81 94 05/08/20 09:37 83 05/08/20 09:15 98.3 F 71 18 142/87 97 - Physical Examination General: No Apparent Distress, Other (OBESE) HEENT: Positive: PERRL Neck: Positive: neck supple Cardiac: Positive: Reg Rate and Rhythm
[2020-05-09 11:48] VITALS: BP 165/100
--- NOTE | 2020-05-09 12:03 | Discharge Summary ---
Providers - Providers Date of Admission: 05/06/20 23:58 Date of discharge: 05/09/20 Attending physician: DINORA WHITTINGTON 05/06/20 23:54 Consult to Physician [CONS] Urgent Comment: Consulting Provider: AMBREEN SHEIKH Physician Instructions: Reason For Exam: cp, hx of cad, stent x 3, AICD 05/07/20 Consult to Cardiac Rehabilitation [CONS] Routine Reason For Exam: Phase I 05/07/20 00:50 Consult to Dietitian/Nutrition [CONS] Routine Physician Instructions: Reason For Exam: Reason for Consult: Diet education Primary care physician: MEDICATION ASSISTANT Hospitalization Reason for admission: Chest pain Condition: Stable Hospital course: 65-year-old male with known history of coronary artery disease with 3 stents placement in the past, hypertension, diabetes mellitus ,hyperlipidemia and history of AICD presenting to the emergency room with complaints of substernal chest pain. Pain is said to be of sudden onset and radiating towards the left shoulder and back. Pain felt like a pressure and was intermittent. He also had associated shortness of breath, nausea and vomiting, and diaphoresis. Patient has just relocated from [place] but has followed up with Dr. Sheikh in the past. Last follow-up was about 2 years ago. Patient remains compliant with his medications. In the ED, chest x-ray, EKG and troponins were unremarkable. He was admitted for a stress test. His stress test is negative. Has been cleared by cardiology. He has been started on pantoprazole for possible GERD. He complains of hesistancy and some difficulty with urination. He will follow up with a urology for evaluation. Flomax has been prescribed for now Disposition: DC-01 TO HOME OR SELFCARE - Discharge Diagnoses (1) Chest pain Status: Acute Comment: Ruled out acute coronary syndrome Serial cardiac enzymes and EKG did not reveal acute changes Core Measure Documentation - Palliative Care Palliative Care/ Comfort Measures: Not Applicable - Core Measures Any of the following diagnoses?: none Exam - Constitutional Vitals: Temp Pulse Resp BP Pulse Ox 97.7 F 82 18 165/100 95 05/09/20 11:47 05/09/20 11:47 05/09/20 11:47 05/09/20 11:47 05/09/20 11:47 General appearance: Present: no acute distress, well-nourished - EENT Eyes: Present: PERRL ENT: hearing intact, clear oral mucosa - Neck Neck: Present: supple, normal ROM - Respiratory Respiratory effort: normal Respiratory: bilateral: CTA - Cardiovascular Heart Sounds: Present: S1 & S2. Absent: rub, click - Extremities Extremities: pulses symmetrical, No edema Peripheral Pulses: within normal limits - Abdominal General gastrointestinal: Present: soft, non-tender, non-distended, normal bowel sounds Male genitourinary: Present: normal - Integumentary Integumentary: Present: clear, warm, dry - Musculoskeletal Musculoskeletal: gait normal, strength equal bilaterally - Psychiatric Psychiatric: appropriate mood/affect, intact judgment & insight - Neurologic Neurologic: CNII-XII intact, moves all extremities Plan Activity: no restrictions Diet: low fat, low cholesterol, low salt, diabetic Additional Instructions: Continue medications as prescribed. Prescriptions: Sucralfate [Carafate] 1 gm PO Q6HR #40 tablet Tamsulosin [Flomax] 0.4 mg PO QDAY #30 cap Omeprazole 20 mg PO DAILY #30 tablet.
[2020-05-09] MEDS: ASPIRIN EC 325 MG TAB PO SCH (13:22)
[2020-05-09] MEDS: HEPARIN 5,000 UNIT/1 ML VIAL SUB-Q SCH (13:22)
[2020-05-09] MEDS: METOPROLOL TARTRATE 50 MG TAB PO SCH (13:22)
[2020-05-09] MEDS: PANTOPRAZOLE 40 MG INJ IV SCH (13:22)
== END 2020-05-09 17:00 | disposition home or self-care (01) ==
LOC: ED 19:38 → 4A 23:58
PROVIDERS: ADMIT Internal Medicine Geriatric Medicine; ATTEND Internal Medicine
DX: R07.89 Other chest pain (principal); T82.9XXA Unspecified complication of cardiac and vascular prosthetic device, implant and graft, initial encounter; I25.10 Atherosclerotic heart disease of native coronary artery without angina pectoris; E11.9 Type 2 diabetes mellitus without complications; E78.5 Hyperlipidemia, unspecified; I10 Essential (primary) hypertension; E78.00 Pure hypercholesterolemia, unspecified; Z95.810 Presence of automatic (implantable) cardiac defibrillator; Z95.5 Presence of coronary angioplasty implant and graft; Z98.890 Other specified postprocedural states; Z79.82 Long term (current) use of aspirin; Z79.84 Long term (current) use of oral hypoglycemic drugs; Z90.49 Acquired absence of other specified parts of digestive tract; Z95.1 Presence of aortocoronary bypass graft
CPT/HCPCS: 36415; 71045; 78452; 80048; 81001; 82962; 84484; 85007; 85025; 85610; 93005; 93017; 93306; 96372; 96374; 96375; 96376; 99285; A9502; C9113; G0378; J1644; J2270; J2785